=== PATIENT | female | born 2000 | race African-American/Black ===

== ENCOUNTER 2019-05-24 15:03 | Emergency (ER) | payer OTHER ==
[~2019-05-24] VITALS: Ht 167.6 cm; Wt 63.6 kg
[2019-05-24 17:40] VITALS: BP 109/63
== END 2019-05-24 17:51 | disposition home or self-care (01) ==
LOC: M ED 15:03
DX: Z32.01 Encounter for pregnancy test, result positive (principal); Z3A.00 Weeks of gestation of pregnancy not specified; O99.331 Smoking (tobacco) complicating pregnancy, first trimester

== ENCOUNTER 2019-06-04 19:33 | Emergency (ER) | payer OTHER ==
[~2019-06-04] VITALS: Ht 165.1 cm; Wt 58.8 kg
[2019-06-04] MEDS ORDERED: ONDANSETRON 4MG/2ML VIAL (J2405) IV ONE (20:45)
[2019-06-04] MEDS ORDERED: NS 1,000 ML IV ONE (20:45)
[2019-06-04 21:56] LABS: BASO % 0.3 % (0.0-1.0); EOS % 0.2 % (0.0-3.0); HEMATOCRIT 38.5 % (36.0-47.0); HEMOGLOBIN 12.5 g/dl (12.0-15.5); LYMPH # 1.3 10^3/uL (1.5-5.0); LYMPH % 9.8 % (24.0-44.0); MEAN CORPUSCULAR HEMOGLOBIN 27.7 pg (27.0-33.0); MEAN CORPUSCULAR HGB CONC 32.5 g/dl (32.0-36.5); MEAN CORPUSCULAR VOLUME 85.4 fl (80.0-96.0); MONO # 0.7 10^3/uL (0.0-0.8); MONO % 5.2 % (0.0-5.0); NEUTROPHILS % 83.8 % (36.0-66.0); PLATELET COUNT, AUTOMATED 226 10^3/uL (150-450); RED BLOOD COUNT 4.51 10^6/uL (4.00-5.40); WHITE BLOOD COUNT 13.1 10^3/uL (4.0-10.0)
[2019-06-04 22:21] LABS: ALT/SGPT 17 U/L (12-78); BILIRUBIN,TOTAL 0.6 MG/DL (0.2-1.0); BLOOD UREA NITROGEN 11 MG/DL (7-18); CALCIUM LEVEL 8.9 MG/DL (8.5-10.1); CARBON DIOXIDE LEVEL 25 MEQ/L (21-32); CHLORIDE LEVEL 103 MEQ/L (98-107); CREATININE FOR GFR 0.58 MG/DL (0.55-1.30); GLUCOSE, FASTING 77 MG/DL (70-100); POTASSIUM SERUM 3.6 MEQ/L (3.5-5.1); SODIUM LEVEL 137 MEQ/L (136-145); TOTAL PROTEIN 7.1 GM/DL (6.4-8.2)
[2019-06-04 22:22] LABS: ALBUMIN 3.8 GM/DL (3.2-5.2); HCG, SERUM QUANTITATIVE 64159 MIU/ML
[2019-06-04] MEDS ORDERED: ONDA4TAB6 PO (22:37)
[2019-06-04 22:47] VITALS: BP 113/57
== END 2019-06-04 22:55 | disposition home or self-care (01) ==
LOC: M ED 19:33
DX: O21.0 Mild hyperemesis gravidarum (principal); Z87.891 Personal history of nicotine dependence; Z3A.01 Less than 8 weeks gestation of pregnancy
CPT/HCPCS: 80053; 84702; 85025; 86901; 96361; 96374; 99284; J2405

== ENCOUNTER 2019-06-29 15:28 | Emergency (ER) | payer OTHER ==
[~2019-06-29] VITALS: Ht 162.6 cm; Wt 59.4 kg
[~2019-06-29 15:28] MED LIST: ONDA4TAB6 PO
[2019-06-29] MEDS ORDERED: BENA25CA4 PO (15:35)
[2019-06-29] MEDS ORDERED: ONDANSETRON 4 MG ORAL DISINTEGRATING TAB (Q0162 PER 1MG) PO ONE ×2 (18:00→21:15)
[2019-06-29 18:45] LABS: INFLUENZA A AMPLIFICATION NEGATIVE (NEGATIVE); INFLUENZA B AMPLIFICATION NEGATIVE (NEGATIVE)
[2019-06-29 21:05] VITALS: BP 125/65
[2019-06-29] MEDS ORDERED: ONDA4TAB6 PO (21:05)
== END 2019-06-29 21:22 | disposition home or self-care (01) ==
LOC: M ED 15:28
DX: O21.9 Vomiting of pregnancy, unspecified (principal); Z3A.11 11 weeks gestation of pregnancy
CPT/HCPCS: 81001; 87086; 87502; 99283; Q0162

== ENCOUNTER 2019-07-03 06:23 | Observation (INO) | payer OTHER ==
[~2019-07-03] VITALS: Ht 165.1 cm; Wt 54.8 kg
[~2019-07-03 06:23] MED LIST changes: +BENA25CA4 PO
[2019-07-03] MEDS ORDERED: METOCLOPRAMIDE INJ 10MG/2ML VIAL (J2765) IV ONE (07:45)
[2019-07-03] MEDS ORDERED: GLYCERIN ADULT SUPP PR ONE (07:45)
[2019-07-03] MEDS ORDERED: NS 1,000 ML IV ONE ×2 (07:45→12:30)
[2019-07-03 07:47] LABS: BASO % 0.2 % (0.0-1.0); EOS % 0.1 % (0.0-3.0); HEMATOCRIT 41.8 % (36.0-47.0); HEMOGLOBIN 13.7 g/dl (12.0-15.5); LYMPH # 1.5 10^3/uL (1.5-5.0); LYMPH % 9.3 % (24.0-44.0); MEAN CORPUSCULAR HEMOGLOBIN 27.3 pg (27.0-33.0); MEAN CORPUSCULAR HGB CONC 32.8 g/dl (32.0-36.5); MEAN CORPUSCULAR VOLUME 83.3 fl (80.0-96.0); MONO # 0.9 10^3/uL (0.0-0.8); MONO % 5.6 % (0.0-5.0); NEUTROPHILS # 13.4 10^3/uL (1.5-8.5); NEUTROPHILS % 84.3 % (36.0-66.0); PLATELET COUNT, AUTOMATED 271 10^3/uL (150-450); RED BLOOD COUNT 5.02 10^6/uL (4.00-5.40)
[2019-07-03 08:13] LABS: ALBUMIN 4.1 GM/DL (3.2-5.2); ALT/SGPT 24 U/L (12-78); BILIRUBIN,DIRECT 0.3 MG/DL (0.0-0.2); BILIRUBIN,TOTAL 0.9 MG/DL (0.2-1.0); BLOOD UREA NITROGEN 14 MG/DL (7-18); CALCIUM LEVEL 9.5 MG/DL (8.5-10.1); CARBON DIOXIDE LEVEL 23 MEQ/L (21-32); CHLORIDE LEVEL 103 MEQ/L (98-107); CREATININE FOR GFR 0.59 MG/DL (0.55-1.30); GLUCOSE, FASTING 78 MG/DL (70-100); LIPASE 92 U/L (73-393); POTASSIUM SERUM 3.8 MEQ/L (3.5-5.1); SODIUM LEVEL 137 MEQ/L (136-145); TOTAL PROTEIN 8.1 GM/DL (6.4-8.2)
--- NOTE | 2019-07-03 09:19 | REP ---
Clinical: and pain. Technique: Transabdominal first trimester obstetrical ultrasound with color Doppler evaluation. Findings: Ultrasound examination demonstrates a single live early intrauterine . CRL of 5.8 cm corresponds to 12 weeks 2 days gestational age with estimated date of delivery 01/13/2020. heart rate equals 165 bpm. Impression: Single live early intrauterine at 12 weeks 2 days gestational age. Electronically Signed by Mal Arauz MD 07/03/2019 09:11 A
[2019-07-03] MEDS ORDERED: ONDANSETRON 4MG/2ML VIAL (J2405) As Ordered ONE (10:04)
[2019-07-03] MEDS ORDERED: ONDANSETRON 4MG/2ML VIAL (J2405) IV ONE (10:15)
[2019-07-03] MEDS ORDERED: ONDA4TAB6 PO (14:53)
[2019-07-03] MEDS ORDERED: PROMETHAZINE INJ 25 MG/ML VIAL (J2550) IV PRN (18:00)
[2019-07-03] MEDS: D5W/LR 1,000 ML IV SCH (18:13)
[2019-07-03 18:47] LABS: AMPHETAMINES URINE REFLEX NEGATIVE (NEGATIVE); BARBITURATES URINE REFLEX NEGATIVE (NEGATIVE); BENZODIAZEPINES URINE REFLEX NEGATIVE (NEGATIVE); COCAINE METABOLITE URINE REFLE NEGATIVE (NEGATIVE); METHADONE URINE REFLEX NEGATIVE (NEGATIVE); OPIATES URINE REFLEX NEGATIVE (NEGATIVE); PHENCYCLIDINE URINE REFLEX NEGATIVE (NEGATIVE)
[2019-07-03 18:56] LABS: CANNABINOIDS URINE REFLEX PENDING CONFIRMATION (NEGATIVE)
[2019-07-03 20:00] VITALS: BP 119/62
--- NOTE | 2019-07-04 00:27 | IPNPDOC ---
Text Note Date of Service The patient was seen on 07/04/19. NOTE Observation note 18yo G1 LEE 01/16/2020. Presents from ED with reports of inability to tolerate food or fluids. Currently 12wks by LMP. Sono today confirmed viable SIUP, 12w2d with LEE 01/13/2020. FH 165. UA SG 1.030, 2+ ketones, 2+ protein, 1+ blood CBC 16.0>13.7/41.8<271 NAD, sleeping soundly. Received phenergan in ED. VSS Has tolerated apple juice since arriving on unit. Continue IV hydration, antiemetics as indicated Consider discharge in am VS,Fishbone, I+O VS, Fishbone, I+O Laboratory Tests 07/03/19 07:37 Vital Signs Date Time Temp Pulse Resp B/P (MAP) Pulse Ox O2 Delivery O2 Flow Rate FiO2 07/03/19 20:00 98.7 66 18 119/62 (81) 98 Room Air I&O- Last 24 Hours up to 6 AM 07/04/19 06:00 Intake Total 2000 ml Balance 2000 ml Tori Laughlin CNM Jul 04, 2019 00:27
[2019-07-04] MEDS: D5W/LR 1,000 ML IV SCH (01:31)
[2019-07-04 01:38] VITALS: BP 109/52
[2019-07-04] MEDS: ONDANSETRON 4MG/2ML VIAL (J2405) IV PRN ×2 (06:58→12:22)
[2019-07-04 09:00] VITALS: BP 121/88
[2019-07-04] MEDS ORDERED: PROM25TA12 PO (11:41)
[2019-07-04] MEDS ORDERED: PROM25SU PR (11:41)
== END 2019-07-04 12:10 | disposition home or self-care (01) ==
LOC: M ED 06:23 → M ED INP 06:24 → ENRESERV 18:16 → M PED 19:19
PROVIDERS: ADMIT Advanced Practice Midwife; ATTEND Obstetrics & Gynecology
DX: O26.891 Other specified pregnancy related conditions, first trimester (principal); O21.9 Vomiting of pregnancy, unspecified; Z3A.12 12 weeks gestation of pregnancy; Z79.899 Other long term (current) drug therapy; Z86.19 Personal history of other infectious and parasitic diseases
CPT/HCPCS: 76801; 80048; 80076; 80307; 81001; 83690; 85025; 93976; 96361; 96374; 96375; 96376; 99284; G0480; J2405; J2765

== ENCOUNTER 2019-07-18 08:23 | Emergency (ER) | payer OTHER ==
[~2019-07-18] VITALS: Ht 165.1 cm; Wt 52.0 kg
[~2019-07-18 08:23] MED LIST changes: +PROM25SU PR; +PROM25TA12 PO
[2019-07-18 09:12] LABS: HEMATOCRIT 37.8 % (36.0-47.0); HEMOGLOBIN 12.9 g/dl (12.0-15.5); MEAN CORPUSCULAR HEMOGLOBIN 28.1 pg (27.0-33.0); MEAN CORPUSCULAR HGB CONC 34.1 g/dl (32.0-36.5); MEAN CORPUSCULAR VOLUME 82.4 fl (80.0-96.0); PLATELET COUNT, AUTOMATED 231 10^3/uL (150-450); RED BLOOD COUNT 4.59 10^6/uL (4.00-5.40); WHITE BLOOD COUNT 16.8 10^3/uL (4.0-10.0)
[2019-07-18] MEDS ORDERED: NS 1,000 ML IV ONE (09:15)
[2019-07-18] MEDS ORDERED: ONDANSETRON 4MG/2ML VIAL (J2405) IV ONE (09:15)
[2019-07-18 09:50] LABS: BLOOD UREA NITROGEN 15 MG/DL (7-18); CALCIUM LEVEL 9.6 MG/DL (8.5-10.1); CARBON DIOXIDE LEVEL 24 MEQ/L (21-32); CHLORIDE LEVEL 105 MEQ/L (98-107); CREATININE FOR GFR 0.68 MG/DL (0.55-1.30); GLUCOSE, FASTING 86 MG/DL (70-100); HCG, SERUM QUANTITATIVE 48119 MIU/ML; POTASSIUM SERUM 3.3 MEQ/L (3.5-5.1); SODIUM LEVEL 140 MEQ/L (136-145)
[2019-07-18 10:28] LABS: APPEARANCE, URINE HAZY (CLEAR); BACTERIA, URINE AUTO NEGATIVE (NEGATIVE); BILIRUBIN, URINE AUTO NEGATIVE (NEGATIVE); BLOOD, URINE BLOOD NEGATIVE (NEGATIVE); COLOR, URINE AMBER (YELLOW); GLUCOSE, URINE (UA) AUTO 1+ mg/dL (NEGATIVE); KETONE, URINE AUTO 2+ mg/dL (NEGATIVE); LEUKOCYTE ESTERASE, URINE AUTO NEGATIVE (NEGATIVE); MUCUS, URINE LARGE (NEGATIVE); NITRITE, URINE AUTO NEGATIVE (NEGATIVE); PROTEIN, URINE AUTO 2+ mg/dL (NEGATIVE); RBC, URINE AUTO 2 /HPF (0-3); SPECIFIC GRAVITY URINE AUTO 1.032 (1.002-1.035); SQUAMOUS EPITHELIAL CELL UR AU 7 /HPF (0-6); WBC, URINE AUTO 8 /HPF (0-3)
[2019-07-18 10:48] LABS: AMPHETAMINES LEVEL URINE NEGATIVE (NEGATIVE); BARBITURATES URINE NEGATIVE (NEGATIVE); BENZODIAZEPINES URINE NEGATIVE (NEGATIVE); CANNABINOIDS URINE POSITIVE (NEGATIVE); COCAINE METABOLITE URINE NEGATIVE (NEGATIVE); METHADONE URINE NEGATIVE (NEGATIVE); OPIATES URINE NEGATIVE (NEGATIVE); PHENCYCLIDINE URINE NEGATIVE (NEGATIVE)
[2019-07-18] MEDS ORDERED: PROMETHAZINE INJ 25 MG/ML VIAL (J2550) IV ONE (11:15)
[2019-07-18 12:55] VITALS: BP 130/71
== END 2019-07-18 13:01 | disposition home or self-care (01) ==
LOC: M ED 08:23
DX: O21.0 Mild hyperemesis gravidarum (principal); O99.322 Drug use complicating pregnancy, second trimester; Z3A.14 14 weeks gestation of pregnancy; Z79.899 Other long term (current) drug therapy
CPT/HCPCS: 80048; 80307; 81001; 84702; 85027; 87086; 96361; 96374; 96375; 99284; J2405

== ENCOUNTER 2019-07-20 16:30 | Emergency (ER) | payer OTHER ==
[~2019-07-20] VITALS: Ht 165.1 cm; Wt 52.1 kg
[2019-07-20] MEDS ORDERED: METOCLOPRAMIDE INJ 10MG/2ML VIAL (J2765) IV ONE (18:15)
[2019-07-20] MEDS ORDERED: NS 1,000 ML IV ONE (18:15)
[2019-07-20 19:03] LABS: BLOOD UREA NITROGEN 10 MG/DL (7-18); CALCIUM LEVEL 9.7 MG/DL (8.5-10.1); CARBON DIOXIDE LEVEL 20 MEQ/L (21-32); CHLORIDE LEVEL 103 MEQ/L (98-107); CREATININE FOR GFR 0.59 MG/DL (0.55-1.30); GLUCOSE, FASTING 64 MG/DL (70-100); POTASSIUM SERUM 3.7 MEQ/L (3.5-5.1); SODIUM LEVEL 135 MEQ/L (136-145)
[2019-07-20] MEDS ORDERED: REGL10TA6 PO (20:42)
[2019-07-20 20:50] VITALS: BP 103/57
== END 2019-07-20 20:54 | disposition home or self-care (01) ==
LOC: M ED 16:30
DX: O21.0 Mild hyperemesis gravidarum (principal); Z3A.00 Weeks of gestation of pregnancy not specified; Z79.899 Other long term (current) drug therapy
CPT/HCPCS: 36415; 80048; 81001; 96361; 96374; 99284; J2765

== ENCOUNTER → 2019-08-25 | Outpatient (CLI) | payer OTHER ==
[~2019-08-25] MED LIST changes: +REGL10TA6 PO
[2019-08-25 18:36] LABS: BASO # 0.1 10^3/uL (0.0-0.2); BASO % 0.5 % (0.0-1.0); EOS % 0.3 % (0.0-3.0); HEMATOCRIT 34.3 % (36.0-47.0); HEMOGLOBIN 11.1 g/dl (12.0-15.5); LYMPH # 1.7 10^3/uL (1.5-5.0); LYMPH % 11.5 % (24.0-44.0); MEAN CORPUSCULAR HEMOGLOBIN 28.2 pg (27.0-33.0); MEAN CORPUSCULAR HGB CONC 32.4 g/dl (32.0-36.5); MEAN CORPUSCULAR VOLUME 87.3 fl (80.0-96.0); MONO # 0.8 10^3/uL (0.0-0.8); MONO % 5.7 % (0.0-5.0); NEUTROPHILS # 11.6 10^3/uL (1.5-8.5); NEUTROPHILS % 80.2 % (36.0-66.0); PLATELET COUNT, AUTOMATED 268 10^3/uL (150-450); RED BLOOD COUNT 3.93 10^6/uL (4.00-5.40); WHITE BLOOD COUNT 14.4 10^3/uL (4.0-10.0)
[2019-08-26 04:58] LABS: CHLAMYDIA DNA AMPLIFICATION POSITIVE (NEGATIVE); GC DNA AMPLIFICATION NEGATIVE (NEGATIVE)
[2019-08-26 12:38] LABS: HEPATITIS C VIRUS ABY INDEX 0.1 INDEX (<0.8); HIV 1&2 SCREEN CENTAUR NEGATIVE (NEGATIVE); RUBELLA IgG QUALITATIVE IMMUNE (IMMUNE)
== END ==
LOC: M PLALAB 14:32
PROVIDERS: ATTEND Obstetrics & Gynecology
DX: Z34.91 Encounter for supervision of normal pregnancy, unspecified, first trimester (principal); Z3A.00 Weeks of gestation of pregnancy not specified
CPT/HCPCS: 36415; 76811; 85025; 86762; 86780; 86803; 86850; 87086; 87340; 87389; 87491; 87591; G0463

== ENCOUNTER → 2019-08-25 | Outpatient (CLI) | payer OTHER ==
--- NOTE | 2019-08-25 17:45 | REP ---
Obstetric sonography: History: Supervision of for anatomy. Findings: Scanning through the gravid uterus demonstrates a cephalic single intrauterine gestation. heart rate is recorded at 143 beats per minute. A fundal grade 1 placenta is seen without evidence of previa. Closed cervical length is measured transabdominally at 4.6 cm. There has been appropriate interval growth. No anomaly is seen. Four-chamber heart and left ventricular outflow tract views are less than optimally achieved due to position. The following additional anatomic structures are identified and felt to be sonographically unremarkable: cranium, choroid plexus, cavum, cerebellum and posterior fossa, nuchal fold, face and profile, right ventricular outflow tract view, diaphragm, left-sided stomach, abdominal wall cord insertion, three-vessel cord, kidneys and bladder, spine, upper and lower extremities. Biometry chart: BPD 4.4 cm = 19 weeks 2 days HC 16.7 cm = 19 weeks 3 days AC 14.7 cm = 20 weeks 0 days FL 3.2 cm = 20 weeks 0 days HL 3.0 cm = 19 weeks 6 days HC/AC ratio normal 1.14. Cephalic index normal 0.72. Estimated weight 319 grams, 0 pounds 11 ounces, 62nd percentile for 19 weeks 3 days. Impression: Viable single intrauterine gestation at 19 weeks 3 days by today's composite sonographic criteria. LEE by today's sonography January 16, 2020. Four-chamber heart and left ventricular outflow tract views less than optimally seen due to position.
== END ==
LOC: M WHC 12:38
PROVIDERS: ATTEND Advanced Practice Midwife
DX: Z34.92 Encounter for supervision of normal pregnancy, unspecified, second trimester (principal); Z3A.19 19 weeks gestation of pregnancy

== ENCOUNTER 2020-03-29 11:22 | Emergency (ER) | payer OTHER ==
[~2020-03-29] VITALS: Ht 165.1 cm; Wt 71.8 kg
[2020-03-29 11:56] LABS: URINE PREG TEST NEGATIVE (NEGATIVE)
[2020-03-29 13:28] VITALS: BP 117/69
[2020-03-29] MEDS ORDERED: KEFL500C17 PO (13:35)
[2020-03-29] MEDS ORDERED: PYRI1TAB5 PO (13:37)
== END 2020-03-29 13:46 | disposition home or self-care (01) ==
LOC: M ED 11:22
DX: N39.0 Urinary tract infection, site not specified (principal); R51 Headache; Z79.3 Long term (current) use of hormonal contraceptives

== ENCOUNTER 2020-05-03 11:10 | Emergency (ER) | payer OTHER ==
[~2020-05-03] VITALS: Ht 167.6 cm; Wt 72.7 kg
[~2020-05-03 11:10] MED LIST changes: +KEFL500C17 PO; +PYRI1TAB5 PO
--- NOTE | 2020-05-03 12:11 | REP ---
INDICATION: blunt trauma, left temporal area with lac. COMPARISON: None. TECHNIQUE: Helical scanning is acquired. 5 mm axial images were reformatted. Coronal MPR images were generated. FINDINGS: Bone window settings demonstrate an intact bony calvarium. There is no evidence of skull fracture or incidental bony calvarial lesion. The visualized paranasal sinuses appear clear. No intraorbital abnormality is seen. On soft tissue window setting images; the lateral, third, and fourth ventricles are normal in size and position. Romeo-white differentiation pattern is normal above and below the tentorium. There are is no evidence of intracranial hemorrhage. No mass, edema, infarction, or midline shift is seen. No extra-axial fluid collection is appreciated. IMPRESSION: Negative noncontrast head CT. <Electronically signed by Alfredo Demarco > 05/03/20 [id number]
[2020-05-03] MEDS ORDERED: ACETAMINOPHEN TAB 650MG DOSE (2X325MG) PO ONE (12:30)
[2020-05-03] MEDS ORDERED: IBUPROFEN 600MG TAB PO ONE (12:30)
[2020-05-03] MEDS ORDERED: IBUP-1022 PO (12:57)
[2020-05-03 13:00] VITALS: BP 147/85
== END 2020-05-03 13:21 | disposition home or self-care (01) ==
LOC: EDBD 11:10 → M ED 11:10
DX: S01.01XA Laceration without foreign body of scalp, initial encounter (principal); Y04.8XXA Assault by other bodily force, initial encounter; Y92.019 Unspecified place in single-family (private) house as the place of occurrence of the external cause; Y93.9 Activity, unspecified